=== PATIENT | female | born 1980 | race Caucasian/White ===

== ENCOUNTER 2016-08-04 14:48 | Emergency (ER) | payer BC, OTHER ==
--- NOTE | 2016-08-04 17:35 | DIAGNOSTIC IMAGING REPORT ---
PROCEDURE: XR ABDOMEN 1 VIEW INDICATION: ABDOMINAL PAIN TECHNIQUE: AP supine and upright views. COMPARISON: None. FINDINGS: Bowel pattern is normal. Soft tissues and osseous structures are normal. IMPRESSION: 1. Normal abdomen.
--- NOTE | 2016-08-04 18:21 | ED NURSING NOTES ---
Clinical Report - Nurses [facility] [address] [place] [address] 08/04/2016 14:50 Patient: SWEETIE MEZA TRIAGE Triage time 14:57 Aug 04 2016. Chief Complaint: ABDOMINAL PAIN and (pt "Have you ever seen the show sex sent you to the emergency room" pt after intercourse last night began having "sharp" diffuse abd pain. pt also reports having "ribbon like stools" for 2 weeks "it's hard and flat and very difficult to have a bowel movement" denies vaginal pain, does c/o "shooting" pains in rectum, denies anal sex). Alert. No acute distress. SEPSIS SCREEN: Sepsis Screen. Negative (no infection suspected/documented). --15:03 La Avalos R.N. 15:03 08/04/16. BP: 134/83. HR: 67. RR: 15. O2 saturation: 100%. Temp: 98.2 F. Pain level now: 8/10. --15:04 La Avalos R.N. Weight: 61.2 kg stated. Height/Length: 61 inches Per Patient. BMI: 25.5. --15:00 La Avalos R.N. Medications ValACYclovir HCl Oral. --15:01 La Avalos R.N. Allergies None. --15:01 La Avalos R.N. Medication/allergy information source: the patient. --15:03 La Avalos R.N. History Arrived by private vehicle. Historian: patient. 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 PAST MEDICAL HX: Immunizations: up-to-date. Last normal menstrual period- contraception ring no periods. SOCIAL HX: Smoker- current status unknown (cigarette). Occasional alcohol use. History of occasional drug use: marijuana. No infectious disease exposure. No known contact with a sick individual. ABUSE ASSESSMENT: No report of abuse. SELF HARM ASSESSMENT: A self harm assessment was performed. The patient answered "no" to the question "Do you have thoughts of harming or killing yourself?". FALL RISK ASSESSMENT: Fall risk assessment completed. No fall risk identified. NUTRITIONAL RISK ASSESSMENT: The nutritional risk assessment revealed no deficiencies. FUNCTIONAL ASSESSMENT: Functional assessment: no impairments noted. LEARNING NEEDS ASSESSMENT: The learning needs assessment revealed no barriers. SKIN INTEGRITY ASSESSMENT: Skin integrity risk assessment completed. No skin integrity risk identified. --15:03 La Avalos R.N. PROBLEMS: Abdominal Pain. Herpes Simplex. Ovarian Cyst. --15:01 La Avalos R.N. ADDITIONAL SURGERIES: Fibroid from left breast. --15:01 La Avalos R.N. Interventions ID band on patient. --15:03 La Aavlos R.N. ID band on patient. --15:04 La Avalos R.N. PHYSICAL ASSESSMENT GENERAL / NEURO / PSYCH: Alert. Oriented X 4. Appears in pain. HEENT: Mucous membranes are pink. RESPIRATORY: Respirations not labored. Breath sounds within normal limits. CVS: Capillary refill less than 2 seconds. SKIN: Skin is warm and dry. --15:28 La Avalos R.N. NURSING PROGRESS NOTES Head of bed elevated. Reassurance given. Patient identifiers checked. Call light placed in reach. Side rails up. Bed placed in lowest position. Brakes of bed on. Patient ready for evaluation- chart flagged. Patient waiting for evaluation. --15:29 La Avalos R.N. 15:47 08/04/2016 Site #1 started via IV antecubital space with an 20g angiocath; one attempt. Blood drawn: rainbow set. Labeled in the presence of the patient and sent to the lab. Saline lock flushed with 10 mL saline. --16:02 La Avalos R.N. 16:03 08/04/2016 Started bag #1 1000 mL IV Fluids IV NS (Saline); bolus of 500 mL then at 999 mL/hr via site #1 via IV pump. Allergies verified and confirmed 5 rights. IV patency established. IV site checked: no pain, redness, or swelling. IV flushed thoroughly pre- and post-medication administration. --16:03 La Avalos R.N. Reassurance given. Patient identifiers checked. Call light placed in reach. Side rails up. Bed placed in lowest position. Brakes of bed on. Patient waiting for disposition. --18:25 La Avalos R.N. 18:25 08/04/16. BP: 107/63. HR: 72. RR: 15. Pain level now: 07/21. --18:25 La Avalos R.N. DISPOSITION / DISCHARGE 18:55 08/04/2016 Site #1 removed upon discharge. Bandaid applied. --18:55 Kristy Andino R.N. Departure time: 1854. Condition at departure: unchanged and stable. Reviewed warnings. Reviewed medication(s) side effects information. Prescription(s) given to the patient. Patient verbalized understanding. Written instructions provided in Maori. The patient was discharged home. She left the Emergency Department ambulatory and via private vehicle. Patient driving. --18:56 Kristy Andino R.N. 18:55 08/04/16. BP: 109/77. HR: 63. RR: 18. O2 saturation: 100%. Pain level now: 09/20. --18:56 Kristy Andino R.N. Locked/Released at 08/04/2016 19:29 by La Avalos R.N.
--- NOTE | 2016-08-04 18:21 | ED ORDER SUMMARY ---
..... Patient: SWEETIE MEZA OrderSheet VisitID: [id number] [address] [place] [address] 35y, F Registration Date/Time: 08/04/2016 ORDER SHEET Weight: 61.2 kg (stated) Allergies: None GENERAL ORDERS: CBC w Diff Urgent (15:38 08/04/2016 Linda COLVIN) (Ack 15:40 KHoerner) (16:03 KPasylvain-Felipen R.N.) CMP Urgent (15:08/04/2016 Linda COLVIN) (Ack 15:40 KHoerner) (16:03 KPasylvain-Felipen R.N.) UA-Culture if indicated Urgent (15:38 08/04/2016 Linda COLVIN) (Ack 15:40 KHoerner) (16:03 KPage-Felipen R.N.) Amylase Urgent (15:08/04/2016 Linda COLVIN) (Ack 15:40 KHoerner) (16:03 KPage-Felipen R.N.) Lipase Urgent (15:38 08/04/2016 Linda COLVIN) (Ack 15:40 KHoerner) (16:03 KPasylvain-Felipen R.N.) Urine Urgent (15:38 08/04/2016 Linda COLVIN) (Ack 15:40 KHoerner) (16:03 KPage-Felipen R.N.) Abdomen 1V Urgent (17:01 08/04/2016 Linda COLVIN) (Ack 17:09 KHoerner) (17:29 KHoerner) MEDICATION ORDERS: IV FLUIDS: IV NS : initial bolus 500 mL (1000 mL/hr), then 125 mL/hr for 4h (NOW); Urgent (15:38 08/04/2016 Linda COLVIN) (Ack 15:40 KPasylvain-Felipen R.N.) (16:03 KPasylvain-iDegochan R.N.) ORDER SHEET NOTES: [Electronically signed by La Avaols R.N. (19:29 08/04/2016)] [Electronically signed by Cristopher Stewart MD (21:15 08/11/2016)] [Electronically locked/signed by La Avalos R.N. (19:29 08/04/2016)]
--- NOTE | 2016-08-04 18:21 | ED CLINICAL REPORT ---
Clinical Report - Physicians/Mid Levels [facility] [address] [place] [address] 08/04/2016 14:50 Patient: SWEETIE MEZA Time Seen: 15:37. Arrived- By private vehicle. Historian- patient. HISTORY OF PRESENT ILLNESS Chief Complaint: ABDOMINAL PAIN. At its maximum, severity described as 10 / 10. When seen in the E.D., severity described as 7 / 10. Modifying factors- worsened by walking. Relieved by rest. It is described as sharp. No radiation. It is described as located in the periumbilical area. This started last night. It was abrupt in onset and has been constant and waxing/waning. The patient has had nausea (last night). No vomiting or diarrhea. Similar symptoms previously: Diagnosis: constipation and ovarian cyst. REVIEW OF SYSTEMS Last normal menstrual period- she doesn't have periods for the past 5 years since she had a Mirena. Uses an intrauterine device. She has had severe constipation (chronically). Last bowel movement: today. No back pain, sweats, calf pain, chest pain or cough. No difficulty breathing, pedal edema, palpitations, black stools or bloody stools. No urinary problems. She has had a subjective fever and chills. All systems otherwise negative, except as recorded above. PAST HISTORY PCP - [facility]. Problems: Abdominal Pain. Herpes Simplex. Ovarian Cyst. Additional Surgeries: Fibroid from left breast. Medications: ValACYclovir HCl Oral. Allergies: None. SOCIAL HISTORY Current every day heavy tobacco smoker (cigarette)- less than 1 pack per day. Occasional alcohol use. History of occasional drug use: marijuana. FAMILY HISTORY Heart disease in grandparent. mother has diverticulitis and colon polyps. ADDITIONAL NOTES The nursing notes have been reviewed. PHYSICAL EXAM Vital Signs: 08/04/2016 15:03 BP: 134/83. HR: 67. RR: 15. O2 saturation: 100%. Temp: 98.2 F. Pain level now: 8/10. Have been reviewed. Appearance: Alert. Eyes: Pupils equal, round and reactive to light. ENT: Pharynx normal. Neck: Normal inspection. Neck supple. CVS: Normal heart rate and rhythm. Heart sounds normal. Respiratory: No respiratory distress. Breath sounds normal. Abdomen: Soft and nontender. Bowel sounds normal. No organomegaly. No mass. Back: Normal inspection. No CVA tenderness. Skin: Skin warm and dry. Normal skin color. Normal skin turgor. Extremities: Extremities exhibit normal ROM. No lower extremity edema. LABS, X-RAYS, AND EKG KUB: Increased stool present. The X-rays were independently viewed by me. Laboratory Tests: UA-Culture if indicated: (TRINY: 08/04/2016 15:29) ( [facility] 08/04/[facility] 16:04) Final results Test Result Flag Units (Reference) URINE COLOR YELLOW URINE APPEARANCE CLEAR URINE GLUCOSE NEGATIVE (NEGATIVE) URINE BILIRUBIN NEGATIVE (NEGATIVE) URINE KETONE NEGATIVE (NEGATIVE) URINE SPECIFIC GRAVITY 1.010 (1.010-1.030) URINE PH 6.0 (5.0-8.0) URINE PROTEIN NEGATIVE (NEGATIVE) URINE UROBILINOGEN 0.2 EU/dL (0.2-1.0) URINE NITRITE NEGATIVE (NEGATIVE) URINE BLOOD 1+ (NEGATIVE) URINE LEUK ESTERASE NEGATIVE (NEGATIVE) URINE RBC 3-5 rbc/hpf (0-1) URINE WBC RARE wbc/hpf (0-1) URINE EPITHELIAL CELLS 1-3 EPI/hpf (0-5) URINE BACTERIA FEW (1+) (NONE SEEN) URINE COMMENT CULT NOT INDICATED 1+ MUCOUSURINE CULTURES ARE SET-UP BASED ON THE FOLLOWING CRITERIA:POSITIVE NITRITEPOSITIVE LEUKOCYTE ESTERASEGREATER THAN 10 WHITE BLOOD CELLSMODERATE (2+) OR GREATER BACTERIA Urine: (TRINY: 08/04/2016 15:29) ( [facility] 08/04/2016 15:57) Final results Test Result Flag Units (Reference) URINE NEGATIVE CBC w Diff: (TRINY: 08/04/2016 15:51) ( [facility] 08/04/2016 16:13) Final results Test Result Flag Units (Reference) WHITE BLOOD COUNT 7.9 K/uL (4.5-11.5) RED BLOOD COUNT 3.85 L M/uL (4.00-5.20) HEMOGLOBIN 12.8 gm/dL (12.0-16.0) HEMATOCRIT 38.7 % (36.0-46.0) MEAN CELL VOLUME 101 H fL (80-100) MEAN CORPUSCULAR HGB 33 pg (26-34) MEAN CORPUSCULAR HGB CONC 33 g/dL (31-37) RED CELL DISTRIBUTION WIDTH 13.7 % (11.6-14.8) PLATELET COUNT 264 K/uL (150-400) NEUTROPHIL % 59.2 % (50-75) LYMPH % 30.6 % (25-40) MONO % 7.7 % (3-14) EOSINOPHIL % 1.9 % (0-4) BASOPHIL % 0.6 % (0-2) CMP: (TRINY: 08/04/2016 15:51) ( [facility] 08/04/2016 16:54) Final results Test Result Flag Units (Reference) GLUCOSE 89 mg/dL (70-110) BUN 9 mg/dL (7-18) CREATININE 0.7 mg/dL (0.6-1.3) Estimated GFR >60 mL/min Estimated GFR- >60 mL/min Note: Persistent reduction over 3 months in eGFR<60 mL/min/1.73 m2 defines CKD. Patients with eGFR values>=60 mL/min/1.73 m2 may also have CKD if evidence ofpersistent proteinuria. Additional information may be foundat www.kidney.org. SODIUM 142 mmol/L (136-145) POTASSIUM 3.3 L mmol/L (3.5-5.1) CHLORIDE 105 mmol/L (98-107) CARBON DIOXIDE 29 mmol/L (21-32) CALCIUM 8.7 mg/dL (8.5-10.1) TOTAL PROTEIN 7.5 g/dL (6.4-8.2) ALBUMIN 3.9 g/dL (3.3-5.0) BILIRUBIN, TOTAL 0.4 mg/dL (0.0-1.0) ALKALINE PHOSPHATASE 48 U/L (46-116) AST (SGOT) 14 L U/L (15-37) ALT (SGPT) 21 U/L (12-78) LIPASE 94 U/L (73-393) AMYLASE 54 U/L (25-115) . PROGRESS AND PROCEDURES Course of Care: Patient is stable. Patient/family counseled. Old medical records reviewed. Disposition: Discharged. Condition: stable. CLINICAL IMPRESSION Acute abdominal pain. Constipation INSTRUCTIONS Drink plenty of fluids. Warnings: Further evaluation is necessary. GENERAL WARNINGS: Return or contact your physician immediately if your condition worsens or changes unexpectedly, if not improving as expected, or if other problems arise. Prescription Medications: Fleet Enema 4.5 oz: Insert the enema into rectum gently and squeeze until nearly all the liquid is expelled. Dispense one (1) bottle. No refills. Substitution is permissible. Follow-up: Follow up with your doctor [facility] tomorrow. Call for an appointment. Understanding of the discharge instructions verbalized by patient. (Electronically signed by Cristopher Stewart MD 08/11/2016 21:15)
--- NOTE | 2016-08-04 18:21 | ED ORDER SUMMARY ---
..... Patient: SWEETIE MEZA OrderSheet [facility] VisitID: [id number] [address] [place] [address] 35y, F Registration Date/Time: 08/04/2016 ORDER SHEET Weight: 61.2 kg (stated) Allergies: None GENERAL ORDERS: CBC w Diff Urgent (15:38 08/04/2016 Linda COLVIN) (Ack 15:40 KHoerner) (16:03 KPasylvain-Felipen R.N.) CMP Urgent (15:08/04/2016 Linda COLVIN) (Ack 15:40 KHoerner) (16:03 KPasylvain-Felipen R.N.) UA-Culture if indicated Urgent (15:38 08/04/2016 Linda COLVIN) (Ack 15:40 KHoerner) (16:03 KPage-Felipen R.N.) Amylase Urgent (15:08/04/2016 Linda COLVIN) (Ack 15:40 KHoerner) (16:03 KPage-Felipen R.N.) Lipase Urgent (15:38 08/04/2016 Linda COLVIN) (Ack 15:40 KHoerner) (16:03 KPasylvain-Felipen R.N.) Urine Urgent (15:38 08/04/2016 Linda COLVIN) (Ack 15:40 KHoerner) (16:03 KPage-Felipen R.N.) Abdomen 1V Urgent (17:01 08/04/2016 Linda COLVIN) (Ack 17:09 KHoerner) (17:29 KHoerner) MEDICATION ORDERS: IV FLUIDS: IV NS : initial bolus 500 mL (1000 mL/hr), then 125 mL/hr for 4h (NOW); Urgent (15:38 08/04/2016 Linda COLVIN) (Ack 15:40 KPasylvain-Felipen R.N.) (16:03 KPasylvain-Diegochan R.N.) ORDER SHEET NOTES: [Electronically signed by La Avalos R.N. (19:29 08/04/2016)] [Electronically signed by Cristopher Stewart MD (21:15 08/11/2016)] [Electronically locked/signed by La Avalos R.N. (19:29 08/04/2016)]
--- NOTE | 2016-08-04 18:21 | ED CLINICAL REPORT ---
Clinical Report - Physicians/Mid Levels [facility] [address] [place] [address] 08/04/2016 14:50 Patient: SWEETIE MEZA Time Seen: 15:37. Arrived- By private vehicle. Historian- patient. HISTORY OF PRESENT ILLNESS Chief Complaint: ABDOMINAL PAIN. At its maximum, severity described as 10 / 10. When seen in the E.D., severity described as 7 / 10. Modifying factors- worsened by walking. Relieved by rest. It is described as sharp. No radiation. It is described as located in the periumbilical area. This started last night. It was abrupt in onset and has been constant and waxing/waning. The patient has had nausea (last night). No vomiting or diarrhea. Similar symptoms previously: Diagnosis: constipation and ovarian cyst. REVIEW OF SYSTEMS Last normal menstrual period- she doesn't have periods for the past 5 years since she had a Mirena. Uses an intrauterine device. She has had severe constipation (chronically). Last bowel movement: today. No back pain, sweats, calf pain, chest pain or cough. No difficulty breathing, pedal edema, palpitations, black stools or bloody stools. No urinary problems. She has had a subjective fever and chills. All systems otherwise negative, except as recorded above. PAST HISTORY PCP - [facility]. Problems: Abdominal Pain. Herpes Simplex. Ovarian Cyst. Additional Surgeries: Fibroid from left breast. Medications: ValACYclovir HCl Oral. Allergies: None. SOCIAL HISTORY Current every day heavy tobacco smoker (cigarette)- less than 1 pack per day. Occasional alcohol use. History of occasional drug use: marijuana. FAMILY HISTORY Heart disease in grandparent. mother has diverticulitis and colon polyps. ADDITIONAL NOTES The nursing notes have been reviewed. PHYSICAL EXAM Vital Signs: 08/04/2016 15:03 BP: 134/83. HR: 67. RR: 15. O2 saturation: 100%. Temp: 98.2 F. Pain level now: 8/10. Have been reviewed. Appearance: Alert. Eyes: Pupils equal, round and reactive to light. ENT: Pharynx normal. Neck: Normal inspection. Neck supple. CVS: Normal heart rate and rhythm. Heart sounds normal. Respiratory: No respiratory distress. Breath sounds normal. Abdomen: Soft and nontender. Bowel sounds normal. No organomegaly. No mass. Back: Normal inspection. No CVA tenderness. Skin: Skin warm and dry. Normal skin color. Normal skin turgor. Extremities: Extremities exhibit normal ROM. No lower extremity edema. LABS, X-RAYS, AND EKG KUB: Increased stool present. The X-rays were independently viewed by me. Laboratory Tests: UA-Culture if indicated: (TRINY: 08/04/2016 15:29) ( [facility] 08/04/2016 16:04) Final results Test Result Flag Units (Reference) URINE COLOR YELLOW URINE APPEARANCE CLEAR URINE GLUCOSE NEGATIVE (NEGATIVE) URINE BILIRUBIN NEGATIVE (NEGATIVE) URINE KETONE NEGATIVE (NEGATIVE) URINE SPECIFIC GRAVITY 1.010 (1.010-1.030) URINE PH 6.0 (5.0-8.0) URINE PROTEIN NEGATIVE (NEGATIVE) URINE UROBILINOGEN 0.2 EU/dL (0.2-1.0) URINE NITRITE NEGATIVE (NEGATIVE) URINE BLOOD 1+ (NEGATIVE) URINE LEUK ESTERASE NEGATIVE (NEGATIVE) URINE RBC 3-5 rbc/hpf (0-1) URINE WBC RARE wbc/hpf (0-1) URINE EPITHELIAL CELLS 1-3 EPI/hpf (0-5) URINE BACTERIA FEW (1+) (NONE SEEN) URINE COMMENT CULT NOT INDICATED 1+ MUCOUSURINE CULTURES ARE SET-UP BASED ON THE FOLLOWING CRITERIA:POSITIVE NITRITEPOSITIVE LEUKOCYTE ESTERASEGREATER THAN 10 WHITE BLOOD CELLSMODERATE (2+) OR GREATER BACTERIA Urine: (TRINY: 08/04/2016 15:29) ( [facility] 08/04/[facility] 15:57) Final results Test Result Flag Units (Reference) URINE NEGATIVE CBC w Diff: (TRINY: 08/04/2016 15:51) ( [facility] 08/04/2016 16:13) Final results Test Result Flag Units (Reference) WHITE BLOOD COUNT 7.9 K/uL (4.5-11.5) RED BLOOD COUNT 3.85 L M/uL (4.00-5.20) HEMOGLOBIN 12.8 gm/dL (12.0-16.0) HEMATOCRIT 38.7 % (36.0-46.0) MEAN CELL VOLUME 101 H fL (80-100) MEAN CORPUSCULAR HGB 33 pg (26-34) MEAN CORPUSCULAR HGB CONC 33 g/dL (31-37) RED CELL DISTRIBUTION WIDTH 13.7 % (11.6-14.8) PLATELET COUNT 264 K/uL (150-400) NEUTROPHIL % 59.2 % (50-75) LYMPH % 30.6 % (25-40) MONO % 7.7 % (3-14) EOSINOPHIL % 1.9 % (0-4) BASOPHIL % 0.6 % (0-2) CMP: (TRINY: 08/04/2016 15:51) ( MsgRcvd 08/04/2016 16:54) Final results Test Result Flag Units (Reference) GLUCOSE 89 mg/dL (70-110) BUN 9 mg/dL (7-18) CREATININE 0.7 mg/dL (0.6-1.3) Estimated GFR >60 mL/min Estimated GFR- >60 mL/min Note: Persistent reduction over 3 months in eGFR<60 mL/min/1.73 m2 defines CKD. Patients with eGFR values>=60 mL/min/1.73 m2 may also have CKD if evidence ofpersistent proteinuria. Additional information may be foundat www.kidney.org. SODIUM 142 mmol/L (136-145) POTASSIUM 3.3 L mmol/L (3.5-5.1) CHLORIDE 105 mmol/L (98-107) CARBON DIOXIDE 29 mmol/L (21-32) CALCIUM 8.7 mg/dL (8.5-10.1) TOTAL PROTEIN 7.5 g/dL (6.4-8.2) ALBUMIN 3.9 g/dL (3.3-5.0) BILIRUBIN, TOTAL 0.4 mg/dL (0.0-1.0) ALKALINE PHOSPHATASE 48 U/L (46-116) AST (SGOT) 14 L U/L (15-37) ALT (SGPT) 21 U/L (12-78) LIPASE 94 U/L (73-393) AMYLASE 54 U/L (25-115) . PROGRESS AND PROCEDURES Course of Care: Patient is stable. Patient/family counseled. Old medical records reviewed. Disposition: Discharged. Condition: stable. CLINICAL IMPRESSION Acute abdominal pain. Constipation INSTRUCTIONS Drink plenty of fluids. Warnings: Further evaluation is necessary. GENERAL WARNINGS: Return or contact your physician immediately if your condition worsens or changes unexpectedly, if not improving as expected, or if other problems arise. Prescription Medications: Fleet Enema 4.5 oz: Insert the enema into rectum gently and squeeze until nearly all the liquid is expelled. Dispense one (1) bottle. No refills. Substitution is permissible. Follow-up: Follow up with your doctor [facility] tomorrow. Call for an appointment. Understanding of the discharge instructions verbalized by patient. (Electronically signed by Cristopher Stewart MD 08/11/2016 21:15)
--- NOTE | 2016-08-11 21:15 | ED DISCHARGE INSTRUCTIONS ---
Patient: SWEETIE MEZA General Instructions [facility] VisitID: [id number] [address] [place] [address] 35y, F Registration Date/Time: 08/04/2016 Acute abdominal pain. Constipation INSTRUCTIONS Drink plenty of fluids. Warnings: Further evaluation is necessary. GENERAL WARNINGS: Return or contact your physician immediately if your condition worsens or changes unexpectedly, if not improving as expected, or if other problems arise. Prescription Medications: Fleet Enema 4.5 oz: Insert the enema into rectum gently and squeeze until nearly all the liquid is expelled. Dispense one (1) bottle. No refills. Substitution is permissible. Follow-up: Follow up with your doctor [facility] tomorrow. Call for an appointment. Understanding of the discharge instructions verbalized by patient. ADDITIONAL INFORMATION Abdominal Pain, Unknown Cause (Female) The exact cause of your abdominal (stomach) pain is not certain. This does not mean that this is something to worry about, or the right tests were not done. Everyone likes to know the exact cause of the problem, but sometimes with abdominal pain, there is no clear-cut cause, and this could be a good thing. The good news is that your symptoms can be treated, and you will feel better. Your condition does not seem serious now; however, sometimes the signs of a serious problem may take more time to appear. For this reason,it is important for you to watch for any new symptoms, problems,or worsening of your condition. Over the next few days, the abdominal pain may come and go, or be continuous. Other common symptoms can include nausea and vomiting. Sometimes it can be difficult to tell if you feel nauseous, you may just feel bad and not associate that feeling with nausea. Constipation, diarrhea, and a fever may go along with the pain. The pain may continue even if treated correctly over the following days. Depending on how things go, sometimes the cause can become clear and may require further or different treatment. Additional evaluations, medications, or tests may be needed. Home care Your health care provider may prescribe medications for pain, symptoms, or an infection. Follow the health care provider's instructions for taking these medications. General care Rest until your next exam. No strenuous activities. Try to find positions that ease discomfort. A small pillow placed on the abdomen may help relieve pain. Something warm on your abdomen (such as a heating pad) may help, but be careful not to burn yourself. Diet Do not force yourself to eat, especially if having cramps, vomiting, or diarrhea. Water is important so you do not get dehydrated. Soup may also be good. Sports drinks may also help, especially if they are not too acidic. Make sure you don't drink sugary drinks as this can make things worse. Take liquids in small amounts. Do not guzzle them. Caffeine sometimes makes the pain and cramping worse. Avoid dairy products if you have vomiting or diarrhea. Don't eat large amounts at a time. Wait a few minutes between bites. Eat a diet low in fiber (called a low-residue diet). Foods allowed include refined breads, white rice, fruit and vegetable juices without pulp, tender meats. These foods will pass more easily through the intestine. Avoid whole-grain foods, whole fruits and vegetables, meats, seeds and nuts, fried or fatty foods, dairy, alcohol and spicy foods until your symptoms go away. Follow-up care Follow up with your health care provider as instructed, or if your pain does not begin to improve in the next 24 hours. When to seek medical care Seek prompt medical care if any of the following occur: Pain gets worse or moves to the right lower abdomen New or worsening vomiting or diarrhea Swelling of the abdomen Unable to pass stool for more than three days Fever of 100.4F (38C) or higher, or as directed by your healthcare provider. Blood in vomit or bowel movements (dark red or black color) Jaundice (yellow color of eyes and skin) Weakness, dizziness Chest, arm, back, neck or jaw pain Unexpected vaginal bleeding or missed period Call 911 Call emergency services if any of the following occur: Trouble breathing Confusion Fainting or loss of consciousness Rapid heart rate Seizure Constipation (Adult) Constipation is bowel movements that are less frequent than usual. Stools often become very hard and difficult to pass. This may lead to abdominal pain and bloating. It may also cause painful bowel movements. Constipation may be due to a diet thats low in fiber. Some medications, especially pain medications, can also cause it. Constipation may be treated with enemas, suppositories, laxatives or stool softeners. Your doctor will advise you which will work best for you. Follow the advice below to help avoid this problem in the future. Home Care Medication: Take any medicines as directed. Some laxatives are safe only for occasional use. Others can be taken on a regular basis. Talk to your doctor or pharmacist if you have questions. General Care: Prescription pain medications can cause constipation. If you are prescribed pain medications, ask the doctor whether you should also take a stool softener. A diet high in fiber with plenty of fluids helps to maintain regular, soft bowel movements. The following foods are good sources of dietary fiber: Cereals and breads: Whole grain cereal with bran, oatmeal, rolled oats, whole grain breads Fruits: All fruits (fresh and dried), raisins, prunes, apricots, berries, figs Vegetables: Any fresh vegetables, especially peas, broccoli, brussels sprouts, winter squash, green beans, cauliflower, massey beans, carrots Other: Popcorn, brown rice Drink plenty of water when you increase the amount of fiber you eat. Follow Up with your doctor or return to this facility if symptoms do not improve in the next few days. You may require further tests or a referral to a specialist. Get Prompt Medical Attention if any of the following occur: Fever over 100.4F (38C) Failure to resume normal bowel movements Increasing abdominal or back pain Nausea or vomiting Abdominal swelling Blood in the stool Weakness, dizziness or fainting Unexpected vaginal bleeding High Fiber Diet Fiber is present in all fruits, vegetables, cereals and grains. Fiber passes through the body undigested. A high fiber diet helps food move through the intestinal tract. The added bulk is helpful in preventing constipation. In people with diverticulosis it serves to clean out the pouches along the colon wall while preventing new ones from forming. A high fiber diet also reduces the risk of colon cancer, decreases blood cholesterol and prevents high blood sugar in people with diabetes. The foods listed below are high in fiber and should be included in your diet. If you are not used to high fiber foods, start with 1 or 2 foods from this list. Every 3-4 days add a new one to your diet until you are eating 4 high fiber foods per day. This should give you 20-35 Gm of fiber/day. It is also important to drink a lot of water when you are on this diet (6-8 glasses a day). Water causes the fiber to swell and increases the benefit. Foods High In Dietary Fiber: BREADS: Made with 100% whole wheat flour; elizabet, wheat or rye crackers; tortillas, bran muffins CEREALS: Whole grain cereal with bran (Chex, Raisin Bran, Milam Bran), oatmeal, rolled oats, granola, wheat flakes, brown rice NUTS: Any nuts FRUITS: All fresh fruits along with edible skins, (bananas, citrus fruit, mangoes, pears, prunes, raisins, apples, pineapple, apricot, melon, jams and marmalades), fruit juices (especially prune juice) VEGETABLES: All types, preferably raw or lightly cooked: especially, celery, eggplant, potatoes,spinach, broccoli, brussel sprouts, winter squash, carrots, cauliflower, soybeans, lentils, fresh and dried beans of all kinds OTHER: Popcorn, any spices You have been given the following additional information: Abdominal Pain, Unknown Cause, (Female) Constipation (Adult) Diet, High Fiber (Electronically signed by Cristopher Stewart MD 08/11/2016 21:15)
--- NOTE | 2016-08-11 21:15 | ED MED RECONCILIATION SUMMARY ---
Patient: SWEETIE MEZA Medication Reconciliation Report [facility] VisitID: [id number] [address] [place] [address] 35y, F Registration Date/Time: 08/04/2016 Weight: 61.2 kg Height/Length: 61 in. BMI: 25.5 ALLERGIES: None The patient's Home Medications are listed below: THE FOLLOWING MEDICATIONS NEED TO BE RECONCILED: ValACYclovir HCl Oral The source(s) of the original Home Medication information: patient The following Medications were given to the patient in the Emergency Department: IV NS IV Fluids bolus 500 mL, then 999 mL/hr, administered: 08/04/2016 4:03:00 PM The following Medications were prescribed to the patient: Fleet Enema 4.5 oz: Insert the enema into rectum gently and squeeze until nearly all the liquid is expelled. Dispense one (1) bottle. No refills. Substitution is permissible. -- Cristopher Stewart MD
--- NOTE | 2016-08-11 21:15 | ED MAR SUMMARY ---
..... Medication Administration Record [facility] [address] [place] [address] Patient: SWEETIE MEZA Visit ID: [id number] 35y, F Weight: 61.2 kg Height/Length: 61 in BMI: 25.5 ALLERGIES: None Start 16:03 08/04/2016 La Avalos R.N. Medication Administered: IV NS (SALINE), Dose: IV Fluids, Rate: 999 mL/hr, Bolus: 500 mL, Dispensed: 1000 mL bag, Site: #1 . Medication Ordered: IV NS : initial bolus 500 mL (1000 mL/hr), then 125 mL/hr for 4h (NOW); Urgent.
--- NOTE | 2016-08-11 21:15 | ED MED RECONCILIATION SUMMARY ---
Patient: SWEETIE MEZA Medication Reconciliation Report [facility] VisitID: [id number] [address] [place] [address] 35y, F Registration Date/Time: 08/04/2016 Weight: 61.2 kg Height/Length: 61 in. BMI: 25.5 ALLERGIES: None The patient's Home Medications are listed below: THE FOLLOWING MEDICATIONS NEED TO BE RECONCILED: ValACYclovir HCl Oral The source(s) of the original Home Medication information: patient The following Medications were given to the patient in the Emergency Department: IV NS IV Fluids bolus 500 mL, then 999 mL/hr, administered: 08/04/2016 4:03:00 PM The following Medications were prescribed to the patient: Fleet Enema 4.5 oz: Insert the enema into rectum gently and squeeze until nearly all the liquid is expelled. Dispense one (1) bottle. No refills. Substitution is permissible. -- Cristopher Stewart MD
--- NOTE | 2016-08-11 21:15 | ED MAR SUMMARY ---
..... Medication Administration Record [facility] [address] [place] [address] Patient: SWEETIE MEZA Visit ID: [id number] 35y, F Weight: 61.2 kg Height/Length: 61 in BMI: 25.5 ALLERGIES: None Start 16:03 08/04/2016 La Avalos R.N. Medication Administered: IV NS (SALINE), Dose: IV Fluids, Rate: 999 mL/hr, Bolus: 500 mL, Dispensed: 1000 mL bag, Site: #1 . Medication Ordered: IV NS : initial bolus 500 mL (1000 mL/hr), then 125 mL/hr for 4h (NOW); Urgent.
== END 2016-08-04 18:58 | disposition home or self-care (01) ==
LOC: ED SRH 14:48
DX: R10.33 Periumbilical pain (principal); K59.00 Constipation, unspecified; Z97.5 Presence of (intrauterine) contraceptive device; Z79.899 Other long term (current) drug therapy; Z72.0 Tobacco use
CPT/HCPCS: 90004; 90100; 92235; 92530; 93070; 95059